=== PATIENT | female | born 2000 | race Caucasian/White ===

== ENCOUNTER 2023-01-07 09:19 | Outpatient (AMB) | payer OTHER, SELFPAY ==
--- NOTE | 2023-01-07 09:20 | A.OFFPC_ITS ---
Vital Signs 01/07/23 09:23 Height 5 ft 5 in Weight 205 lb 4 oz BMI 34.2 BP 104/60 Blood Pressure Location Rt brachial Position Sitting Respiration 12 Pulse 77 Pulse Source Pulse Oximeter Temp 97 F Temp Source Temporal Artery Scan Pulse Oximetry (%) 99 Oxygen Delivery Method Room Air Intake Visit Reasons: DIRECTOR NICU, est. care Date Pitter Required: No Accompanied by: Self / Same As Patient Allergies No Known Allergies Allergy (Verified 01/07/23 09:35) Medication List - Last Reconciled 01/07/23 by Stanislaw Jessica CNP No Known Home Meds Tobacco use date assessed: 01/07/23 Dental Screening Dental Screen Date: 01/07/23 Did you have a dental visit in the last 12 months?: No Did you have a dental problem in the last 6 months where you did not have access to dental care?: No Was dental information given to patient?: Yes HPI HPI Comments History of Present Illness Details 22-year-old female presents to [facility]. She states she was last evaluated by her former PCP/ict sales representative 1 year ago. She notes she has not had blood work done in several years She reports anxiety and depression. She was on medications until 2 years ago when she stopped because I did not not want to take medicine. She was never followed by a therapist.. She denies worsening anxiety and depression symptoms. She declined medication regimen at this time and requests assistance to connect to a therapist. She notes that her last pap smear test was 2 months ago: normal. She requests a referral to gynecology. She is sexually active, in a monogamous relationship, and practices safe sex. Denies significant FH Denies smoking cigarette Reports occasional alcohol consumption [facility] Medical History Anxiety Asthma Depression Surgical History [place] teeth extracted Family History Maternal Grandmother Ovarian cancer Paternal Grandmother Cardiovascular disease Maternal Grandfather High blood pressure Diabetes Social History Housing: House Patient Tobacco Use Status: Never used Tobacco e-Cigarette/Vaping Use: Never Used service: No Current occupational status: employed Current occupation: Teacher at [employer] Cognitive needs: No Hearing needs: No Vision needs: No Questionnaire PHQ-9 Over the last 2 weeks, how often have you been bothered by any of the following problems? 1. Little interest or pleasure in doing things: not at all 2. Feeling down, depressed, or hopeless: several days 3. Trouble falling or staying asleep, or sleeping too much: several days 4. Feeling tired or having little energy: several days 5. Poor appetite or overeating: more than half the days 6. Feeling bad about yourself - or that you are a failure or have let yourself or your family down: several days 7. Trouble concentrating on things, such as reading the newspaper or watching television: not at all 8. Moving or speaking so slowly that other people could have noticed. Or the opposite - being so fidgety or restless that you have been moving around a lot more than usual: not at all 9. Thoughts that you would be better off or of hurting yourself in some way: several days Total score: 7 Depression Screening Interpretation: Positive Depression Screening Follow-up: Existing condition and Community Mental Health Worker F/U Source: Developed by Drs. Kumar Flores, Chantal Banks, Nicanor Grubbs and colleagues, with an educational abhijit from [employer]. Thrive Questionnaire Date Thrive assessed: 01/07/23 I am a: Patient What is your living situation today?: I have a steady place to live Within the past 12 months, did the food you bought not last and you didn't have the money to get more?: Never true Within the past 12 months, did you worry whether your food would run out before you got money to buy more?: Never true Do you have trouble paying for medicines?: No Do you have trouble getting transportation to medical appointments?: No Do you have trouble paying your heating and electricity bill?: No Do you have trouble taking care of your child, family member or friend?: No Do you have trouble with day-to-day activities such as bathing, preparing meals, shopping, managing finances, etc.?: No Are you currently unemployed and looking for a job?: No Are you interested in more education?: No Please select the resources that you would like help with: None Currently or been in a relationship where the following occur: no concerns reported AUDIT C Alcohol Use Questionnaire (AUDIT-C) 1. How often do you have a drink containing alcohol?: Monthly or less 2. How many drinks containing alcohol do you have on a typical day when you are drinking?: 1 or 2 3. How often do you have six or more drinks on one occasion?: Never Total Score: 1 JASWINDER-7 AMB Questionnaire JASWINDER-7 Date JASWINDER - 7 assessed: 01/07/23 Feeling nervous, anxious, or on edge: 3 = Nearly every day Not being able to stop or control worryin = More than half the days Worrying too much about different things: 2 = More than half the days Trouble relaxin = Several days Being so restless that it is hard to sit still: 1 = Several days Becoming easily annoyed or irritable: 1 = Several days Feeling afraid as if something awful might happen: 2 = More than half the days Total JASWINDER-7 score (0-4 normal; 5-9 mild; 10-14 moderate; 15-21 severe): 12 Source: Developed by Drs. Kumar Flores, Chantal Banks, Nicanor Grubbs and colleagues, with an educational abhijit from [employer]. ACT Questionnaire In the past 4 weeks, how much of the time did your asthma keep you from getting as much done at work, school or at home?: None of the time During the past 4 weeks, how often have you had shortness of breath?: Not at all During the past 4 weeks, how often did your asthma symptoms wake you up at night or earlier than usual in the morning?: Not at all During the past 4 weeks, how often have you had to use your rescue inhaler or nebulizer medication?: Not at all How would you rate your asthma control during the past 4 weeks?: Completely controlled Score: 25 Review of Systems Const Details: Denies chills, Denies fatigue, Denies fever(s), Denies headache(s) and Denies weakness HEENT Denies change in vision, Denies dizziness, Denies headache(s), Denies hearing loss, Denies nasal congestion, Denies sinus pain, Denies sinus pressure and Denies sore throat Card Denies chest pain, Denies lightheadedness, Denies dyspnea and Denies other (palpitations) Resp Denies cough, Denies dyspnea and Denies wheezing GI Denies abdominal pain, Denies melena, Denies hematochezia, Denies change in bowel habits, Denies dyspepsia and Denies nausea Denies hematuria and Denies dysuria Musc Denies abnormal gait, Denies myalgias, Denies arthralgias, Denies numbness and Denies tingling Skin/Breast Denies rash, Denies unusual bruising and Denies wounds Neuro Denies abnormal gait, Denies dizziness, Denies headache(s), Denies memory loss, Denies numbness, Denies Sensory deficit (Neuro), Denies tingling and Denies weakness Psych Reports anxiety, Reports depression and Denies memory loss Endo Denies cold intolerance, Denies fatigue, Denies heat intolerance, Denies polydipsia and Denies polyuria Jarret/Lymph Denies easy bleeding and Denies easy bruising Aller/Immun Denies wheezing Physical exam (Primary Care) Vital Signs: Last Vital Signs Temp 97 F 01/07/23 09:23 Pulse 77 01/07/23 09:23 Resp 12 01/07/23 09:23 BP 104/60 01/07/23 09:23 Pulse Ox 99 01/07/23 09:23 Oxygen Delivery Method Room Air 01/07/23 09:23 BMI result Body Mass Index 34.2 Tobacco/Smoking Status: Tobacco use Status Tobacco use date assessed 01/07/23 01/07/23 09:32 Patient Tobacco Use Status Never used Tobacco 01/07/23 09:32 e-Cigarette/Vaping Use Never Used 01/07/23 09:32 PHQ-9: PHQ-9 Score PHQ-9: Total score 7 01/07/23 09:49 Depression Screening Interpretation: Positive Depression Screening Follow-up: Existing condition and Community Mental Health Worker F/U Thrive Assessment: Date of Thrive Assessment Date Thrive assessed 01/07/23 01/07/23 09:32 Currently or been in a relationship where the following occur: no concerns reported Const Other: General: no acute distress, well developed, alert and awake Nutritional Appearance: well nourished Orientation/consciousness: patient oriented x3 HENMT Head: Yes normocephalic and Yes atraumatic Ears: hearing grossly normal bilaterally and TM's normal bilaterally General nose exam: Normal external nose present and Normal nares present Mouth: Normal oral and palatal mucosa present and moist mucous membranes Teeth and gingiva: dentition normal Throat: Yes oropharynx normal Eyes Pupils: Equal, round and reactive pupils present and Pupil accommodation reflex normal EOM: EOMs intact bilaterally Neck Neck: Yes normal visual inspection, Yes no lymphadenopathy and Yes trachea midline Thyroid: Thyroid normal Carotids: no bruits Lymphatic: no lymphadenopathy noted Chest Chest palpation & inspection: normal inspection of the chest Resp Effort & Inspection: normal respiratory effort Auscultation: clear to auscultation bilaterally Cardio Rate: regular rate Rhythm: regular rhythm Heart sounds: S1 normal heart sound present, S2 normal heart sound present, no gallops, no murmurs and no rubs Bruits: no abdominal aortic bruits and no carotid bruits GI Palpation (GI): No Abdominal aortic bruit present, Soft to palpation, nontender, No hepatosplenomegaly present and No Rebound tenderness present Auscultation: normal bowel sounds General: Yes no CVA tenderness Back/Spine/Pelvis Back: no CVA tenderness Cervical Spine: cervical ROM normal and No Cervical spine tenderness Thoracic/Lumbar Spine: thoraco-lumbar ROM normal, No pain with thoraco-lumbar ROM, No thoracic spinal tenderness and No lumbar spinal tenderness Skin General: warm and dry. Normal skin color. Normal skin turgor Lesions: no lesions Rashes: no rashes Trauma: no lacerations or abrasions Wounds: no wounds Nails: normal Neuro General: patient oriented x3, gait normal and CN's II-XI intact bilaterally Cranial nerves: Yes Equal, round and reactive pupils present Cognition (Neuro): normal cognition Gait exam (Neuro): Normal gait present Motor exam (neuro): 5/5 motor strength present throughout Sensory Exam: No Sensory deficit (Neuro) Deep tendon reflexes (DTR's): Right patellar reflex intensity grade: 2+ and Left patellar reflex intensity grade: 2+ Extrem General: Yes normal to inspection, No edema and No calf tenderness Psych Appearance: grossly normal Affect: normal affect Attitude: cooperative Thought process: Normal thought process present Assessment and Plan Assessment & Plan (1) Anxiety and depression: Code(s): F41.9 - Anxiety disorder, unspecified; F32.A - Depression, unspecified Plan: She reports anxiety and depression. She was on medications until 2 years ago when she stopped because I did not not want to take medicine. She was never followed by a therapist.. She denies worsening anxiety and depression symptoms. She declined medication regimen at this time and requests assistance to connect to a therapist. She met with the community navigator who provided resources to help connect to a therapist Routine exercise encouraged Follow-up in 1 month return sooner with worsening or new symptoms Verbalized understanding and agreed with treatment plan. (2) Normal physical examination, routine: Code(s): Z00.00 - Encounter for general adult medical examination without abnormal findings Plan: No significant physical restrictions or limitations noted (3) Laboratory tests ordered as part of a complete physical exam (CPE): Code(s): Z00.00 - Encounter for general adult medical examination without abnormal findings Plan: Fasting labs ordered as part of a complete physical exam. Advised to fast for at least 10 hours before getting labs drawn. May drink water Verbalized understanding and agreed with treatment plan. (4) Pap smear for cervical cancer screening: Code(s): Z12.4 - Encounter for screening for malignant neoplasm of cervix Plan: She notes that her last pap smear test was 2 months ago: normal. She requests a referral to gynecology. Gynecology referral made. Orders: Orders Comprehensive [place]. Panel Fast Today Z00.00 - Encounter for general adult medical examination without abnormal findings Lipid Panel Today Z00.00 - Encounter for general adult medical examination without abnormal findings TSH reflex Free T4 Today Z00.00 - Encounter for general adult medical examination without abnormal findings Complete Blood Count Auto Diff Today Z00.00 - Encounter for general adult medical examination without abnormal findings UA CC w/rflx Micro + Cult Today Z00.00 - Encounter for general adult medical examination without abnormal findings Referrals [facility] Referral Z12.4 - Encounter for screening for malignant neoplasm of cervix Coding Level of Care Code New Pt Prev Care 18-39yr([id number] Diagnoses Anxiety and depression F41.9; F32.A Normal physical examination, routine Z00.00 Laboratory tests ordered as part of a complete physical exam (CPE) Z00.00 Pap smear for cervical cancer screening Z12.4
[2023-01-07 09:23] VITALS: BP 104/60; PULSE 77; RESP 12; TEMP 36.1; O2SAT 99; BMI 34.2
== END 2023-01-07 10:15 | disposition home or self-care (01) ==
PROVIDERS: PCP Hospitalist; Visit Provider Nurse Practitioner Family
DX: F41.9 Anxiety disorder, unspecified (principal); F32.A Depression, unspecified; Z00.00 Encounter for general adult medical examination without abnormal findings; Z12.4 Encounter for screening for malignant neoplasm of cervix
CPT/HCPCS: 99385

== ENCOUNTER 2023-01-07 09:58 | Outpatient (REF) | payer OTHER, MEDICAID, SELFPAY ==
[2023-01-07 11:12] LABS: MANUAL DIFF FLAG NO
[2023-01-07 11:43] LABS: Appearance Urine Clear; Color Urine Yellow; Glucose Urine UA Negative (Negative); Leukocyte Esterase Urine Negative (Negative); Nitrite Urine Negative (Negative); PH 6.5 (5.0-9.0); Specific Gravity - Urine 1.015 (1.005-1.025); Urine Blood Negative (Negative); Urine Ketones Negative (Negative); Urine Protein Negative (Neg-Trace)
[2023-01-07 12:04] LABS: Basophils Absolute Auto 0.1 X10*3/uL (0.0-0.2); Basophils Percent Auto 1.1 % (0-2); Eosinophils Absolute Auto 0.1 X10*3/uL (0.0-0.4); Eosinophils Percent Auto 1.1 % (0-4); Hematocrit 40.8 % (37.0-47.0); Hemoglobin 13.7 g/dl (12.0-16.0); Imm Gran Abs Auto 0.02 X10*3/uL (0.00-0.03); Imm Gran Pct Auto 0.3 % (0.0-0.4); Lymphocytes Absolute Auto 1.8 X10*3/uL (1.2-4.9); Lymphocytes Percent Auto 27.6 % (20-40); Mean Corpuscular HGB Conc 33.6 g/dl (31.0-35.0); Mean Corpuscular Hemoglobin 31.4 pg (27.0-33.0); Mean Corpuscular Volume 93.6 fL (80.0-98.0); Mean Platelet Volume 10.9 fL (9.4-12.3); Monocytes Absolute Auto 0.4 X10*3/uL (0.1-1.2); Monocytes Percent Auto 5.4 % (2-11); Neutrophils Absolute Auto 4.2 x10*3/uL (2.0-8.3); Neutrophils Percent Auto 64.5 % (45-73); Platelet Count 324 X10*3/uL (160-400); Red Blood Count 4.36 X10*6/uL (4.20-5.50); Red Cell Distribution Width 11.6 % (11.0-16.0); White Blood Count 6.5 X10*3/uL (4.8-10.8)
[2023-01-07 12:53] LABS: Alanine Aminotransferase 17 U/L (0-31); Albumin Level 4.3 g/dL (3.5-5.0); Alkaline Phosphatase 56 U/L (39-117); Anion Gap 14 (12-20); Aspartate Amino Transferase 22 U/L (5-31); Bilirubin Total 0.2 mg/dL (0.0-1.0); Blood Urea Nitrogen 11 mg/dL (9-16); Calcium 9.7 mg/dL (8.4-10.2); Carbon Dioxide 23 mmol/L (22-29); Chloride 109 mmol/L (96-108); Cholesterol 209 mg/dL; Estimated Glomerular Filt Rate > 60; Glucose Fasting 84 mg/dL (60-99); HDL Cholesterol 62 mg/dL; LDL Cholesterol Calculated 139 mg/dl; Potassium 3.9 mmol/L (3.3-5.1); Sodium 142 mmol/L (135-145); Total Protein 7.3 g/dL (6.5-8.0); Triglycerides 42 mg/dL
[2023-01-07 13:09] LABS: TSH reflex Free T4 2.02 uIU/mL (0.32-4.0)
== END 2023-01-07 09:59 | disposition home or self-care (01) ==
LOC: HO.WFDLDS 09:58
PROVIDERS: Visit Provider Nurse Practitioner Family
DX: Z00.00 Encounter for general adult medical examination without abnormal findings (principal)
CPT/HCPCS: 36415; 80053; 80061; 81003; 84443; 85025

== ENCOUNTER 2023-02-04 09:04 | Outpatient (AMB) | payer OTHER, SELFPAY ==
[2023-02-04 09:20] VITALS: BP 112/65; PULSE 58; RESP 16; TEMP 37.1; O2SAT 97; BMI 33.8
--- NOTE | 2023-02-04 09:20 | A.OFFPC_ITS ---
Vital Signs 02/04/23 09:20 Height 5 ft 5 in Weight 203 lb 2 oz BMI 33.8 BP 112/65 Blood Pressure Location Lt brachial Position Sitting Respiration 16 Pulse 58 Pulse Source Pulse Oximeter Temp 98.8 F Temp Source Oral Pulse Oximetry (%) 97 Oxygen Delivery Method Room Air Intake Visit Reasons: 1 mos labs review, anxiety/depression Intake Note: Patient is here for lab review, and to follow up on anxiety and depression. Allergies No Known Allergies Allergy (Verified 02/04/23 09:42) Medication List - Last Reconciled 02/04/23 by Stanislaw Jessica CNP No Known Home Meds Tobacco use date assessed: 02/04/23 Dental Screening Dental Screen Date: 02/04/23 Did you have a dental visit in the last 12 months?: No Did you have a dental problem in the last 6 months where you did not have access to dental care?: No Was dental information given to patient?: Patient declined HPI HPI Comments History of Present Illness Details 22-year-old female presents for anxiety and depression follow-up. She established care last month. She declined medication regimen for anxiety and depression. She met with the community navigator who provided resources to help her connect to a therapist. She reports controlled anxiety and depression symptoms. She reports history of ADHD. Review of her pediatrics health record revealed history of ADHD; she was on amphetamine-dextroamphetamine 15 mg daily until a year ago. She requests as needed anxiety medication. She notes she does not like to take scheduled medications. [facility] Medical History Anxiety Asthma Depression Surgical History [place] teeth extracted Family History Maternal Grandmother Ovarian cancer Paternal Grandmother Cardiovascular disease Maternal Grandfather High blood pressure Diabetes Social History Housing: House Patient Tobacco Use Status: Never used Tobacco e-Cigarette/Vaping Use: Never Used service: No Current occupational status: employed Current occupation: Teacher at [employer] Cognitive needs: No Hearing needs: No Vision needs: No Questionnaire PHQ-9 Over the last 2 weeks, how often have you been bothered by any of the following problems? 1. Little interest or pleasure in doing things: several days 2. Feeling down, depressed, or hopeless: several days 3. Trouble falling or staying asleep, or sleeping too much: several days 4. Feeling tired or having little energy: nearly every day 5. Poor appetite or overeating: several days 6. Feeling bad about yourself - or that you are a failure or have let yourself or your family down: not at all 7. Trouble concentrating on things, such as reading the newspaper or watching television: several days 8. Moving or speaking so slowly that other people could have noticed. Or the opposite - being so fidgety or restless that you have been moving around a lot more than usual: not at all 9. Thoughts that you would be better off or of hurting yourself in some way: not at all Total score: 8 Depression Screening Interpretation: Positive Source: Developed by Drs. Kumar Flores, Chantal Banks, Nicanor Grubbs and colleagues, with an educational abhijit from [employer]. Thrive Questionnaire Date Thrive assessed: 01/07/23 JASWINDER-7 AMB Questionnaire JASWINDER-7 Date JASWINDER - 7 assessed: 01/07/23 Feeling nervous, anxious, or on edge: 1 = Several days Not being able to stop or control worryin = Several days Worrying too much about different things: 1 = Several days Trouble relaxin = Not at all Being so restless that it is hard to sit still: 0 = Not at all Becoming easily annoyed or irritable: 1 = Several days Feeling afraid as if something awful might happen: 2 = More than half the days Total JASWINDER-7 score (0-4 normal; 5-9 mild; 10-14 moderate; 15-21 severe): 6 Source: Developed by Drs. Kumar Flores, Chantal Banks, Nicanor Grubbs and colleagues, with an educational abhijit from [employer]. Review of Systems Const Details: Const Denies chills, Denies fatigue, Denies fever(s), Denies headache(s) and Denies weakness ENT Denies dizziness and Denies headache(s) Card Denies chest pain, Denies lightheadedness, Denies dyspnea and Denies other (Palpitations) Resp Denies cough, Denies dyspnea, Denies wheezing and Denies other ( shortness of breath) GI Denies abdominal pain, Denies melena, Denies hematochezia, Denies change in bowel habits, Denies dyspepsia and Denies nausea Denies hematuria and Denies dysuria Musc Denies abnormal gait, Denies myalgias, Denies arthralgias, Denies numbness and Denies tingling Skin/Breast Denies rash, Denies unusual bruising and Denies wounds Neuro Denies abnormal gait, Denies dizziness, Denies headache(s), Denies memory loss, Denies numbness, Denies Sensory deficit (Neuro), Denies tingling and Denies weakness Psych Denies anxiety, Denies depression, Denies memory loss Endo Denies cold intolerance, Denies fatigue, Denies heat intolerance, Denies polydipsia and Denies polyuria Aller/Immun Denies wheezing Physical exam (Primary Care) Vital Signs: Last Vital Signs Temp 98.8 F 02/04/23 09:20 Pulse 58 02/04/23 09:20 Resp 16 02/04/23 09:20 BP 112/65 02/04/23 09:20 Pulse Ox 97 02/04/23 09:20 Oxygen Delivery Method Room Air 02/04/23 09:20 BMI result Body Mass Index 33.8 Tobacco/Smoking Status: Tobacco use Status Tobacco use date assessed 02/04/23 02/04/23 09:32 Patient Tobacco Use Status Never used Tobacco 02/04/23 09:21 e-Cigarette/Vaping Use Never Used 02/04/23 09:21 PHQ-9: PHQ-9 Score PHQ-9: Total score 8 02/04/23 09:32 Depression Screening Interpretation: Positive Thrive Assessment: Date of Thrive Assessment Date Thrive assessed 01/07/23 02/04/23 09:21 Const Other: General: no acute distress and well developed Nutritional Appearance: well nourished Orientation/consciousness: patient oriented x3 HENMT Head: Yes normocephalic and Yes atraumatic Eyes General: appearance normal, both eyes and all related structures Pupils: Equal, round and reactive pupils present EOM: EOMs intact bilaterally Resp Effort & Inspection: normal respiratory effort Auscultation: clear to auscultation bilaterally Cardio Rate: regular rate Rhythm: regular rhythm Heart sounds: S1 normal heart sound present, S2 normal heart sound present, no gallops, no murmurs and no rubs GI Palpation (GI): No Abdominal aortic bruit present, Soft to palpation, nontender, No hepatosplenomegaly present and No Rebound tenderness present Auscultation: normal bowel sounds General: Yes no CVA tenderness Back/Spine/Pelvis Back: no CVA tenderness Cervical Spine: cervical ROM normal and No Cervical spine tenderness Thoracic/Lumbar Spine: thoraco-lumbar ROM normal, No pain with thoraco-lumbar ROM, No thoracic spinal tenderness and No lumbar spinal tenderness Extrem General: Yes normal to inspection, No edema and No calf tenderness Skin General: warm and dry. Normal skin color. Normal skin turgor Lesions: no lesions Rashes: no rashes Trauma: no lacerations or abrasions Wounds: no wounds Nails: normal Neuro General: patient oriented x3, gait normal and no focal neuro deficit Cranial nerves: Yes Equal, round and reactive pupils present Cognition (Neuro): normal cognition Gait exam (Neuro): Normal gait present Sensory Exam: No Sensory deficit (Neuro) Psych Appearance: grossly normal Affect: normal affect Attitude: cooperative Thought process: Normal thought process present Assessment and Plan Assessment & Plan (1) Anxiety and depression: Code(s): F41.9 - Anxiety disorder, unspecified; F32.A - Depression, unspecified Plan: PHQ-9 and JASWINDER-7 scores revealed mild anxiety and depression Hydroxyzine ordered. Take as prescribed Routine exercise encouraged Message sent to the community navigator informing him to follow-up with therapist Follow-up in 3 months or return sooner with worsening or new symptoms Verbalized understanding and agreed with treatment plan (2) ADHD: Code(s): F90.9 - Attention-deficit hyperactivity disorder, unspecified type Plan: As above (3) Hypercholesterolemia: Code(s): E78.00 - Pure hypercholesterolemia, unspecified Plan: Recent lab results reviewed with the patient Unremarkable lab results except for slightly elevated total cholesterol and LDL Advised to limit foods high in saturated fat and avoid foods high trans fat Routine exercise encouraged Verbalized understanding and agreed with treatment plan. Medications: New hydroxyzine HCl 25 mg PO BID 30 days PRN 90 tabs 1RF anxiety Coding Level of Care Code Est Pt Level 3 (73021) Diagnoses Anxiety and depression F41.9; F32.A ADHD F90.9 Hypercholesterolemia E78.00
== END 2023-02-04 10:07 | disposition home or self-care (01) ==
PROVIDERS: PCP Hospitalist; Visit Provider Nurse Practitioner Family
DX: F41.9 Anxiety disorder, unspecified (principal); F32.A Depression, unspecified; F90.9 Attention-deficit hyperactivity disorder, unspecified type; E78.00 Pure hypercholesterolemia, unspecified
CPT/HCPCS: 99213

== ENCOUNTER 2023-04-02 09:49 | Outpatient (AMB) | payer OTHER, MEDICAID, SELFPAY ==
[2023-04-02 09:55] VITALS: BP 124/78; PULSE 64; RESP 16; TEMP 36.9; O2SAT 98; BMI 33.2
--- NOTE | 2023-04-02 09:55 | A.OFFPC_ITS ---
Vital Signs 04/02/23 09:55 Height 5 ft 5 in Weight 199 lb 6 oz BMI 33.2 BP 124/78 Blood Pressure Location Lt brachial Position Sitting Respiration 16 Pulse 64 Pulse Source Pulse Oximeter Temp 98.4 F Temp Source Oral Pulse Oximetry (%) 98 Oxygen Delivery Method Room Air Intake Visit Reasons: Cough since 03/24 Intake Note: Patient is here with a cough since last Saturday. She had negative at home Covid tests. She has a runny nose, and headaches from coughing, sore throat, and chest congestion. Allergies No Known Allergies Allergy (Verified 04/02/23 10:04) Medication List - Last Reconciled 04/02/23 by Stanislaw Jessica CNP hydroxyzine HCl 25 mg PO BID PRN 30 days Tobacco use date assessed: 04/02/23 Dental Screening Dental Screen Date: 04/02/23 Did you have a dental visit in the last 12 months?: Yes Did you have a dental problem in the last 6 months where you did not have access to dental care?: No Was dental information given to patient?: Patient declined HPI HPI Comments History of Present Illness Details 22-year-old female presents with complai nts of ongoing, intermittent productive cough with green phlegm for the past 7 days. She reports associated runny nose, frontal headache, sore throat, and chest congestion which started 10 days ago. She notes severe symptoms at night. 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 Her coworker is also sick. She has been taking Tylenol and DayQuil with some improvement. She denies fever, chills, body aches, fatigue, or weakness. She states that she has a negative rapid home COVID test. 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 Kumar Flores, Chantal Banks, Nicanor Grubbs and colleagues, with an educational abhijit from [employer]. Review of Systems Const Details: Const Denies chills, Denies fatigue, Denies fever(s), Reports headache(s) and Denies weakness ENT Reports as per HPI Card Denies chest pain, Denies lightheadedness, Denies dyspnea and Denies other (Palpitations) Resp Reports cough, Denies dyspnea, Denies wheezing and Denies other ( shortness of breath) GI Denies abdominal pain, Denies melena, Denies hematochezia, Denies change in bowel habits, Denies dyspepsia and Denies nausea Denies hematuria and Denies dysuria Musc Denies abnormal gait, Denies myalgias, Denies arthralgias, Denies numbness and Denies tingling Skin/Breast Denies rash, Denies unusual bruising and Denies wounds Neuro Denies abnormal gait, Denies dizziness, Denies headache(s), Denies memory loss, Denies numbness, Denies Sensory deficit (Neuro), Denies tingling and Denies weakness Psych Denies anxiety, Denies depression, Denies memory loss Endo Denies cold intolerance, Denies fatigue, Denies heat intolerance, Denies polydipsia and Denies polyuria Aller/Immun Denies wheezing Physical exam (Primary Care) Vital Signs: Last Vital Signs Temp 98.4 F 04/02/23 09:55 Pulse 64 04/02/23 09:55 Resp 16 04/02/23 09:55 BP 124/78 04/02/23 09:55 Pulse Ox 98 04/02/23 09:55 Oxygen Delivery Method Room Air 04/02/23 09:55 BMI result Body Mass Index 33.2 Tobacco/Smoking Status: Tobacco use Status Tobacco use date assessed 04/02/23 04/02/23 09:58 Patient Tobacco Use Status Never used Tobacco 10/24/23 09:58 e-Cigarette/Vaping Use Never Used 04/02/23 09:58 Thrive Assessment: Date of Thrive Assessment Date Thrive assessed 01/07/23 04/02/23 09:58 Const Other: General: no acute distress and well developed Nutritional Appearance: well nourished Orientation/consciousness: patient oriented x3 HENMT Head is normocephalic Bilateral ear canal and TM are normal Nasal turbinates and oropharynx are pink and moist Sinuses are nontender with palpation No auricular or cervical lymphadenopathy Eyes General: appearance normal, both eyes and all related structures Pupils: Equal, round and reactive pupils present EOM: EOMs intact bilaterally Resp Effort & Inspection: normal respiratory effort Auscultation: clear to auscultation bilaterally Cardio Rate: regular rate Rhythm: regular rhythm Heart sounds: S1 normal heart sound present, S2 normal heart sound present, no gallops, no murmurs and no rubs GI Palpation (GI): No Abdominal aortic bruit present, Soft to palpation, nontender, No hepatosplenomegaly present and No Rebound tenderness present Auscultation: normal bowel sounds General: Yes no CVA tenderness Back/Spine/Pelvis Back: no CVA tenderness Cervical Spine: cervical ROM normal and No Cervical spine tenderness Thoracic/Lumbar Spine: thoraco-lumbar ROM normal, No pain with thoraco-lumbar ROM, No thoracic spinal tenderness and No lumbar spinal tenderness Extrem General: Yes normal to inspection, No edema and No calf tenderness Skin General: warm and dry. Normal skin color. Normal skin turgor Lesions: no lesions Rashes: no rashes Trauma: no lacerations or abrasions Wounds: no wounds Nails: normal Neuro General: patient oriented x3, gait normal and no focal neuro deficit Cranial nerves: Yes Equal, round and reactive pupils present Cognition (Neuro): normal cognition Gait exam (Neuro): Normal gait present Sensory Exam: No Sensory deficit (Neuro) Psych Appearance: grossly normal Affect: normal affect Attitude: cooperative Thought process: Normal thought process present Assessment and Plan Assessment & Plan (1) Viral upper respiratory illness: Code(s): J06.9 - Acute upper respiratory infection, unspecified Plan: Likely viral illness though possibly allergies. No exam evidence of bacterial infection Viral illness There is no antibiotic medication for viruses.? They must run their course.? Most average 5-7 days but 7-10 days is not uncommon and up to 14 days is still possible.? A cough is often the last symptom to resolve and this can last for weeks in some cases. Rest Hydrate well -? Drink plenty of fluids.? Especially water. Tylenol or ibuprofen for muscle aches, headache, fever/discomfort Zyrtec daily Cannot rule out COVID-19/RSV/Flu infection Nasal swab acquired and will be sent to the lab Return for new or worsening symptoms Verbalized understanding and agreed with treatment plan. (2) Cough: Code(s): R05.9 - Cough, unspecified Qualifiers: Cough type: acute Qualified Code(s): R05.1 - Acute cough Plan: As above Orders: Orders SARS-CoV2/FLU/RSV Today J06.9 - Acute upper respiratory infection, unspecified, R05.9 - Cough, unspecified Coding Level of Care Code Est Pt Level 3 (92032) Diagnoses Viral upper respiratory illness J06.9 Acute cough R05.1 Cough type: acute
== END 2023-04-02 10:24 | disposition home or self-care (01) ==
PROVIDERS: PCP Nurse Practitioner Family; Visit Provider Nurse Practitioner Family
DX: J06.9 Acute upper respiratory infection, unspecified (principal); R05.1 Acute cough
CPT/HCPCS: 99213

== ENCOUNTER 2023-04-02 10:23 | Outpatient (REF) | payer OTHER, MEDICAID, SELFPAY ==
[2023-04-02 15:13] LABS: Influenza A PCR NEGATIVE (Negative); Influenza B PCR NEGATIVE (Negative); Resp Syncy Virus RNA Qual PCR NEGATIVE (Negative); SARS COV2 PCR INHOUSE NEGATIVE (Negative)
== END 2023-04-02 10:24 | disposition home or self-care (01) ==
LOC: HO.LAB 10:23
PROVIDERS: Visit Provider Nurse Practitioner Family
DX: Z11.52 Encounter for screening for COVID-19 (principal); J06.9 Acute upper respiratory infection, unspecified; R05.9 Cough, unspecified
CPT/HCPCS: 0241U

== ENCOUNTER 2023-04-23 09:37 | Outpatient (AMB) | payer OTHER, MEDICAID, SELFPAY ==
--- NOTE | 2023-04-23 09:41 | MHC.OFFVIS ---
Intake Vital Signs 04/23/23 09:42 Height 5 ft 5.5 in Weight 204 lb BMI 33.4 Intake Visit Reasons: Consult nexplanon removal Intake Note: Nexplanon due for removal card state Jun 2021. Sap Basis Consultant Required: No Allergies No Known Allergies Allergy (Verified 04/23/23 09:44) Medication List - Last Reconciled 04/23/23 by Jade Espinosa CNM etonogestrel (Nexplanon) subdermal hydroxyzine HCl 25 mg PO BID PRN 30 days Is last menstrual period known: Yes Last menstrual period: 04/09/23 Post menopausal: No HPI Consult nexplanon removal HPI Details Patient is here to discuss getting her Nexplanon removed she was told it was due for removal in June of 2021 but every time she called to inquire about it where it was put in they told her that she could leave it in longer and it would still work for her she had a period of time where she did not have as regular periods but she has been getting them fairly frequently and she has been keeping track for at least the last year very regularly and they are at least monthly with at least 2 months when she got 2 periods a month of fairly long periods of bleeding. She does think she has gained a lot of weight with the Nexplanon so she is unsure about what she wants to do for control she is pretty clear that she does not want to have a baby right now she is in the stable monogamous relationship and things are good but she has not ready to have a baby at this time of her life. Her mother had PCOS and the patient herself has noticed increased chest hair and so she is concerned about that. Her mother and other friends had been told they could not have a baby because of the PCOS so she was concerned about that. 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 [facility] Medical History Asthma Depression Anxiety Surgical History [place] teeth extracted Family History Maternal Grandmother Ovarian cancer Paternal Grandmother Cardiovascular disease Maternal Grandfather High blood pressure Diabetes Social History (Updated 04/23/23 @ 09:47 by LEROY Castillo) Housing: House Alcohol intake: current Alcohol intake frequency: a few times a month Patient Tobacco Use Status: Never used Tobacco e-Cigarette/Vaping Use: Never Used Use of substances other than those prescribed or required for medical reasons: Yes Substance Use Type: Marijuana service: No Current occupational status: employed 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 Assessment & Plan Assessment & Plan (1) control counseling: Code(s): Z30.09 - Encounter for other general counseling and advice on contraception (2) Nexplanon in place: Code(s): Z97.5 - Presence of (intrauterine) contraceptive device Plan -I reviewed with the patient, all of the currently common used methods of control that are available. We reviewed how they work in the body, how they are taken, common side effects, uncommon side effects, precautions, and contraindications. -Discussed also factors that influence their effectiveness and use, and womens satisfaction with the method. -Discussed how each are used, and drawbacks of each method as well. -Methods covered included: condoms, control pills, control patches, control rings, Depo-Provera, Nexplanon, Mirena and ParaGard IUDs. If interested, we also covered methods such as vasectomies, abstinence, fertility awareness and Plan B. discussed their role as well. ---Discussed PCOS in general and specifically about the interplay of the abnormal hormonal milieu related to being overweight, with the elevations of many hormone levels, including testosterone and estrogen, as well as others that contribute to cycles that are anovulatory and therefore prolonged, and when periods do come they come very heavy, and can contribute to lots of cramping, with passage of clots and anemia. Discussed the common symptoms related to the elvated hormonal levels, including increased facial hair, male pattern hair thinning, acne, and increased central abdominal girth. Discussed the interplay with difficulty getting when desired, but still possible, and therefore the need to contracept as appropriate and when needed. Discussed the role of weight loss as the primary, most important, and most likely to succeed, intervention, in achieving healthier status as regards PCOS, and ovulatory regular cycles. Additionally the very important relationship to elevated insulin levels, and blood sugars, and high risk of pre diabetes, progressing to diabetes as well as other metabolic syndromes related to this was discussed. This was a lengthy visit discussing all of the options for her to consider given her concerns and what she is open to. She is going to go home and think about it and when she decides she will will come in and sign what ever form is appropriate for ordering of the particular system her top to choices as she was leaving the office were a a ParaGard IUD which could be inserted with her next menses after her arrival of the ParaGard or be replacement of the Nexplanon with a new 1. In the meantime I urged her to use condoms and be very careful about especially if she has any symptoms of ovulation which she has noted in the past. Other options that were discussed and then she moved on from them were the norethindrone only OCP, Coding Level of Care Code New Pt Level 4 (64859) Diagnoses control counseling Z30.[address] Z97.5 Time Spent (min) 45 Comment 100% face to face counseling/decision making
[2023-04-23 09:42] VITALS: BMI 33.4
== END 2023-04-23 10:41 | disposition home or self-care (01) ==
LOC: HO.HWS 09:37
PROVIDERS: PCP Nurse Practitioner Family; Visit Provider Advanced Practice Midwife
DX: Z30.09 Encounter for other general counseling and advice on contraception (principal); Z97.5 Presence of (intrauterine) contraceptive device
CPT/HCPCS: 99204

== ENCOUNTER → 2023-04-23 09:37 | Outpatient (BNVA) | payer OTHER, MEDICAID, SELFPAY | PROVIDERS: PCP Nurse Practitioner Family; Visit Provider Advanced Practice Midwife ==

== ENCOUNTER 2023-08-27 13:26 | Outpatient (AMB) | payer OTHER, SELFPAY ==
--- NOTE | 2023-08-27 13:31 | MHC.OFFVIS ---
Intake Vital Signs 08/27/23 13:32 Height 5 ft 5 in Weight 205 lb BMI 34.1 BP 132/74 Blood Pressure Location Rt brachial Position Sitting Intake Visit Reasons: Nexplanon Removal/40 min Allergies No Known Allergies Allergy (Verified 08/27/23 13:32) Medication List - Last Reconciled 08/27/23 by Jade Espinosa CNM etonogestrel (Nexplanon) subdermal Is last menstrual period known: Yes (08/14/23) Last menstrual period: 08/14/23 HPI Nexplanon Removal/40 min HPI Details Patient is here with her boyfriend Harsh to have her Nexplanon removed she brought her boyfriend because ?I am a baby?. She has had the Nexplanon in for 5 years she is very glad she did not get in that time she has made a plan that she will and has been using condoms since I recommended that to her. Also if she gets it would not be the end of the world though it has not quite in their plans as they have bought a house and are not quite in the space they want to be to have a baby at this time but they have been together for many years and are quite comfortable and feel in a good place emotionally. 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 For now she wants to remove it and let her periods get back to normal she potentially may have had a history of PCOS and this was discussed at the last visit she has gained weight over the years and discussed the connection between regular menses and being overweight as well. 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 The insertion site was located: 8-10cm from the medial epicondyle notch of the humerus, posterior to the sulcus, between the triceps and biceps muscle. The area of the previous implant was identified and the distal tip located. This area was cleansed with an alcohol prep and 3 ml of 1% Lidocaine on a 25 gauge needle and syringe was utilized for adequate anesthesia to the insertion site. After ascertaining adequate anesthesia, the area was prepped with Betadine solution. The skin over the distal tip was incised with a #11 blade scalpel and the capsule was located and entered freeing the implant from the canal. The implant was removed with a gentle tug using a mosquito clamp and removed intact. Direct pressure was applied to the insertion site for hemostasis, minimal bleeding was observed. Steri strips, Tegaderm covering, gauze pads, and Darryl wrap dressing were secured with paper tape. The implant was palpable underneath the skin by myself and the patient. The patient tolerated the procedure well and left the office in good condition. 60446 - Removal Assessment & Plan Assessment & Plan (1) Nexplanon in place: Code(s): Z97.5 - Presence of (intrauterine) contraceptive device (2) control counseling: Code(s): Z30.09 - Encounter for other general counseling and advice on contraception (3) Encounter for Nexplanon removal: Code(s): Z30.46 - Encounter for surveillance of implantable subdermal contraceptive Plan Patient is here with her boyfriend Harsh to have her Nexplanon removed she brought her boyfriend because ?I am a baby?. She has had the Nexplanon in for 5 years she is very glad she did not get in that time she has made a plan that she will and has been using condoms since I recommended that to her. Also if she gets it would not be the end of the world though it has not quite in their plans as they have bought a house and are not quite in the space they want to be to have a baby at this time but they have been together for many years and are quite comfortable and feel in a good place emotionally. 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 For now she wants to remove it and let her periods get back to normal she potentially may have had a history of PCOS and this was discussed at the last visit she has gained weight over the years and discussed the connection between regular menses and being overweight as well. She has a plan to use condoms and also she is going to start keeping track of her periods though they are very irregular at this time. If they become regular than she might be able to also use fertility awareness as part of her regimen however they are not regular now so that would not be useful as a tool. I gave her a prescription for Plan B control in case she has an oops. Discussed keeping a put the pressure dressing on for several hours if she can tolerate it as she does have a tendency to bleed and the longer it stays under pressure the less likely she is to have a problem with bleeding and healing and it will heal much better she needs to keep the Tegaderm sterile dressing on for at least 3 days it has Steri-Strips underneath and they will come off when she removes the Tegaderm. We will see her whenever she needs to be seen and she says she had her Pap smear done last year at her previous practice. She is to call her seek emergency care or urgent care if there were any difficulties.. Orders: Orders AMB Nexplanon/Implanon Insertion - Patient Supply Today Z30.09 - Encounter for other general counseling and advice on contraception, Z30.46 - Encounter for surveillance of implantable subdermal contraceptive, Z97.5 - Presence of (intrauterine) contraceptive device Medications: New levonorgestrel (Plan B One-Step) 1.5 mg PO ONCE 1 tab 4RF Coding Level of Care Code Est Pt Level 3 (19253) Diagnoses Nexplanon in place Z97.5 control counseling Z30. Encounter for Nexplanon removal Z30.46 CPT Codes Details - Contraception: 11444 - Removal ([id number])
[2023-08-27 13:32] VITALS: BP 132/74; BMI 34.1
== END 2023-08-27 15:29 | disposition home or self-care (01) ==
PROVIDERS: PCP Nurse Practitioner Family; Visit Provider Advanced Practice Midwife
DX: Z30.09 Encounter for other general counseling and advice on contraception (principal); Z97.5 Presence of (intrauterine) contraceptive device; Z30.46 Encounter for surveillance of implantable subdermal contraceptive
CPT/HCPCS: 11982; 99213

== ENCOUNTER → 2023-08-27 13:26 | Outpatient (BNVA) | payer OTHER, MEDICAID, SELFPAY | PROVIDERS: PCP Nurse Practitioner Family; Visit Provider Advanced Practice Midwife | DX: Z30.46 Encounter for surveillance of implantable subdermal contraceptive (principal) | CPT/HCPCS: 11982 ==

== ENCOUNTER 2024-01-30 14:02 | Outpatient (AMB) | payer OTHER, SELFPAY ==
--- NOTE | 2024-01-30 14:03 | A.OFFVIS_ITS ---
Intake Visit Reasons: TV PCOS follow up Allergies No Known Allergies Allergy (Verified 01/30/24 14:03) Medication List - Last Reconciled 01/30/24 by Jade Espinosa CNM No Known Home Meds Is last menstrual period known: Yes Last menstrual period: 01/04/24 HPI HPI TV PCOS follow up: Details: This is a tele visit to discuss patient concerns about whether not she has PCOS she had a Nexplanon removed 08/27/2023. Her periods did return and she had a period September 05 to September 10, October 07 to October 09, November 08 to November 11, December 07 to December 10, and January 03 to January 06., she has a history about to go migraines she believes she is overweight. She is trying to be hormone free for now and keep very close track of her periods and is even using ovulation predictor kits to check her LH level so that she can avoid hormonal methods of control she has her primary care provider who has not had in recent fasting labs though fasting labs from December of 2022 were found. She is concerned that maybe she has PCOS because her periods have gotten shorter and she is overweight and also she does have more chest hair when she believes is normal. She is trying to figure out safe days but also is concerned about future fertility just got them diabetes. She also is concerned for future fertility issues. She had felt tightness in arm where the Nexplanon had been couple of weeks after had been concerned that it was not healing might but it is fine now. [facility] Medical History Asthma Depression Anxiety Surgical History [place] teeth extracted Family History Maternal Grandmother Ovarian cancer Paternal Grandmother Cardiovascular disease Maternal Grandfather High blood pressure Diabetes Social History Housing: House Alcohol intake: current Alcohol intake frequency: a few times a month Patient Tobacco Use Status: Never used Tobacco e-Cigarette/Vaping Use: Never Used Substance Use Type: Marijuana service: No Current occupational status: employed Current occupation: Teacher at [employer] Cognitive needs: No Hearing needs: No Vision needs: No Female Reproductive History Menstrual Age of Menarche: 13 Date of last menstrual period: 01/04/24 control method: none Total pregnancies: 0 Date of last pap smear: 06/29/22 (negative) Telehealth Telehealth Telehealth Platform: Telephone Location of provider rendering services: practice address Location of patient: address on file Patient Identification confirmed using: Name, : Yes Telehealth method: voice only Patient verbally consented to treatment: Yes Patient verbally consented to billing insurance company: Yes Patient informed of any privacy concerns related to visit: Yes Minutes spent on Phone/Video with Pt.: 28 (6 cr/ speaking with patient/9 charting=43) Assessment & Plan Assessment & Plan (1) Obesity (BMI 30.0-34.9): Code(s): E66.9 - Obesity, unspecified Category: Medical (2) Oligomenorrhea: Comment: Regular cycles have returned since removal of Nexplanon 08/28/2023 but they are shorter than they used to be patient concerned. Code(s): N91.5 - Oligomenorrhea, unspecified Category: Medical (3) Hirsutism: Code(s): L68.0 - Hirsutism Category: Medical (4) Family history of diabetes mellitus (DM): Comment: mother prediabetes Code(s): Z83.3 - Family history of diabetes mellitus Category: Medical (5) control counseling: Code(s): Z30.09 - Encounter for other general counseling and advice on contraception Category: Medical Plan Reviewed the syndrome PCOS and that it is combination factors that leads to the diagnosis but it would be fine to have some lab work checking for testosterone as well as some other hormonal levels. I did review labs that she had had in the system from last year that were all within normal limits with borderline elevated cholesterol. Reviewed normal cycles in detail and that they do not follow the printed calendar that we use but rather follow the body's own cycles and the way to count the length of cycles is from day 1 of 1 period to day 1 of the next and then to correlate when she believes she is ovulating and she is using symptoms as well as LH levels and therefore she can see which are safe days to have unprotected sex and which would not be. Additionally I will order an ultrasound as well as the labs and we will have a visit afterwards to review all but it sounds like her periods are more normal regular then she suspects and levels maybe fine but we shall see she will be reassured if there is no proof of PCOS but she would like to know if there was that she could be more proactive. Orders: Orders Hemoglobin A1c Today E66.9 - Obesity, unspecified, L68.0 - Hirsutism, N91.5 - Oligomenorrhea, unspecified, Z83.3 - Family history of diabetes mellitus DHEA Sulfate Today E66.9 - Obesity, unspecified, L68.0 - Hirsutism, N91.5 - Oligomenorrhea, unspecified, Z83.3 - Family history of diabetes mellitus US pelvic and transvaginal Today E66.9 - Obesity, unspecified, L68.0 - Hirsutism, N91.5 - Oligomenorrhea, unspecified, Z30.09 - Encounter for other general counseling and advice on contraception, Z83.3 - Family history of diabetes mellitus Sex Hormone Binding Globulin Today E66.9 - Obesity, unspecified, L68.0 - Hirsutism, N91.5 - Oligomenorrhea, unspecified, Z83.3 - Family history of diabetes mellitus Coding Level of Care Code Tele Est Pt Level 3 (23500) Diagnoses Obesity (BMI 30.0-34.9) E66.9 Oligomenorrhea N91.5 Hirsutism L68.0 Family history of diabetes mellitus (DM) Z83.3 control counseling Z30.09
== END 2024-01-30 14:57 | disposition home or self-care (01) ==
LOC: HO.HWSM 14:02
PROVIDERS: PCP Nurse Practitioner Family; Visit Provider Advanced Practice Midwife
DX: E66.9 Obesity, unspecified (principal); N91.5 Oligomenorrhea, unspecified; L68.0 Hirsutism; Z83.3 Family history of diabetes mellitus; Z30.09 Encounter for other general counseling and advice on contraception
CPT/HCPCS: 99213

== ENCOUNTER → 2024-01-30 14:02 | Outpatient (BNVA) | payer OTHER, SELFPAY | PROVIDERS: PCP Nurse Practitioner Family; Visit Provider Advanced Practice Midwife ==

== ENCOUNTER 2024-02-11 11:34 | Outpatient (REF) | payer OTHER, SELFPAY ==
--- NOTE | ~2024-02-11 | US_ITS ---
EXAMINATION: US PELVIS CLINICAL INFORMATION: Oligomenorrhea, last menstrual period 01/28/2024. COMPARISON: 10 None available. TECHNIQUE: Ultrasound of the pelvis is performed using both transabdominal and transvaginal transducers along with Doppler. Transvaginal imaging is performed due to inadequate visualization transabdominally. FINDINGS: The uterus is anteverted and measures 8.0 x 3.1 x 4.4 cm. No significant free fluid. Trace amount of fluid within the endometrial cavity. Double wall endometrial thickness is 8 mm. Left ovary measures 2.4 x 1.8 x 1.9 cm, volume 4.3 mL. Right ovary measures 3.2 x 1.5 x 1.8 cm. Bilateral ovaries are grossly unremarkable, although visualization is limited due to bowel gas. US/US pelvic and transvaginal IMPRESSION: 1. Trace amount of fluid within the endometrial cavity. Double wall endometrial thickness is 8 mm. 2. Bilateral ovaries are grossly unremarkable, although visualization limited due to bowel gas. Electronically signed by: Leigha Phelan MD 02/12/2024 04:51 PM EDT
== END 2024-02-11 11:35 | disposition home or self-care (01) ==
LOC: HO.US 11:34
PROVIDERS: PCP Nurse Practitioner Family; Visit Provider Advanced Practice Midwife
DX: N91.5 Oligomenorrhea, unspecified (principal); L68.0 Hirsutism; Z83.3 Family history of diabetes mellitus; E66.9 Obesity, unspecified
CPT/HCPCS: 76830; 76856

== ENCOUNTER 2025-03-19 12:54 | Outpatient (AMB) | payer OTHER, SELFPAY ==
--- NOTE | 2025-03-19 12:59 | MHC.PC.OV ---
Vital Signs 03/19/25 13:11 Height 5 ft 5.5 in Weight 223 lb BMI 36.5 BP 115/54 L Blood Pressure Location Rt brachial Position Sitting Respiration 16 Pulse 77 Pulse Source Pulse Oximeter Temp 97.9 F Temp Source Oral Pulse Oximetry (%) 98 Oxygen Delivery Method Room Air Intake Visit Reasons: CPE Intake Note: patient here for CPE Private Client Advisor Required: No Is last menstrual period known: No Post menopausal: No Patient : Yes (7months ) Allergies No Known Allergies Allergy (Verified 03/19/25 13:15) Medication List - Last Reconciled 03/19/25 by Stanislaw Jessica CNP choline 250 mg PO DAILY ferrous gluconate (Ferate) 240 mg PO DAILY mv-mn [id number] 180 mcg-35 mg- 25 mg-5 mg ( Gummies (zinc chelate)) tabs PO Tobacco use date assessed: 03/19/25 Dental Screening Dental Screen Date: 03/19/25 Did you have a dental visit in the last 12 months?: No Did you have a dental problem in the last 6 months where you did not have access to dental care?: No Was dental information given to patient?: No HPI HPI Comments History of Present Illness Details 24-year-old female presents for an extended physical exam. She is on vitamins and iron supplement. She is 7 months and going well. She mentioned having a velamentous cord insertion, but reported that the growth of the fetus has been monitored and has been progressing well. She reports controlled mood. Acute issue(s) - None Past Medical History - Anxiety, depression, ADHD Social History - Nonsmoker. Does not vape. Does not drink alcohol. Denies recreational drug use - Has been making healthy dietary choices. Exercises routinely. Generally sleep well - She notes that she is sexually, in a monogamous relationship, and has no concern for STDs Health maintenance - Last eye exam was several years ago. Referred to Ophthalmology for routine eye exam - Last dental visit was 3 ago; encouraged to schedule an appointment with his dentist for routine dental care - Last Tdap was in 11/11/2012; refused Tdap at this time; plans to get vaccine with card scraper - Has not been vaccinated for the flu this season; declines vaccination - Last pap smear test was in 06/2022 with [facility] [employer] Specialists - [place] [facility] Medical History Asthma Depression Anxiety Surgical History [place] teeth extracted Family History Maternal Grandmother Ovarian cancer Paternal Grandmother Cardiovascular disease Maternal Grandfather High blood pressure Diabetes Social History Housing: House Alcohol intake: current Alcohol intake frequency: a few times a month Patient Tobacco Use Status: Never used Tobacco e-Cigarette/Vaping Use: Never Used Second Hand Smoke Exposure: No Substance Use Type: Marijuana service: No Current occupational status: employed Current occupation: Teacher at [employer] Cognitive needs: No Hearing needs: No Vision needs: No Female Reproductive History Menstrual Age of Menarche: 13 Questionnaire PHQ-9 Over the last 2 weeks, how often have you been bothered by any of the following problems? 1. Little interest or pleasure in doing things: not at all 2. Feeling down, depressed, or hopeless: not at all 3. Trouble falling or staying asleep, or sleeping too much: several days 4. Feeling tired or having little energy: several days 5. Poor appetite or overeating: not at all 6. Feeling bad about yourself - or that you are a failure or have let yourself or your family down: not at all 7. Trouble concentrating on things, such as reading the newspaper or watching television: not at all 8. Moving or speaking so slowly that other people could have noticed. Or the opposite - being so fidgety or restless that you have been moving around a lot more than usual: not at all 9. Thoughts that you would be better off or of hurting yourself in some way: not at all Total score: 2 Depression Screening Interpretation: Negative Depression Screening Done: Yes 00591 - PHQ-9 Billing: Yes Source: Developed by Drs. Kumar Flores, Chantal Banks, Nicanor Grubbs and colleagues, with an educational abhijit from [employer]. Thrive Questionnaire Date Thrive assessed: 03/18/25 I am a: Patient What is your living situation today?: I have a steady place to live Within the past 12 months, did the food you bought not last and you didn't have the money to get more?: I choose not to answer this question Within the past 12 months, did you worry whether your food would run out before you got money to buy more?: Sometimes True Do you have trouble paying for medicines?: I choose not to answer this question Do you have trouble getting transportation to medical appointments?: No Do you have trouble paying your heating and electricity bill?: No Do you have trouble taking care of your child, family member or friend?: No Do you have trouble with day-to-day activities such as bathing, preparing meals, shopping, managing finances, etc.?: No Are you currently unemployed and looking for a job?: I choose not to answer this question Are you interested in more education?: No Please select the resources that you would like help with: None Currently or been in a relationship where the following occur: No concerns reported THRIVE Score: 1 AUDIT C Alcohol Use Questionnaire (AUDIT-C) 1. How often do you have a drink containing alcohol?: Never 3. How often do you have six or more drinks on one occasion?: Never Total Score: 0 Score Reviewed/Action Taken: Yes JASWINDER-7 AMB Questionnaire JASWINDER-7 Date JASWINDER - 7 assessed: 03/19/25 Feeling nervous, anxious, or on edge: 1 = Several days Not being able to stop or control worryin = Several days Worrying too much about different things: 0 = Not at all Trouble relaxin = Several days Being so restless that it is hard to sit still: 0 = Not at all Becoming easily annoyed or irritable: 0 = Not at all Feeling afraid as if something awful might happen: 1 = Several days Total JASWINDER-7 score (0-4 normal; 5-9 mild; 10-14 moderate; 15-21 severe): 4 Source: Developed by Drs. Kumar Flores, Chantal Banks, Nicanor Grubbs and colleagues, with an educational abhijit from [employer]. JASWINDER-7 Assessment Billing JASWINDER-7 Assessment Tool: JASWINDER-7 Assessment 32067 Review of Systems Const Details: Denies chills, Denies fatigue, Denies fever(s), Denies headache(s) and Denies weakness HEENT Denies change in vision, Denies dizziness, Denies headache(s), Denies hearing loss, Denies nasal congestion, Denies sinus pain, Denies sinus pressure and Denies sore throat Card Denies chest pain, Denies lightheadedness, Denies dyspnea and Denies other (palpitations) Resp Denies cough, Denies dyspnea and Denies wheezing GI Denies abdominal pain, Denies melena, Denies hematochezia, Denies change in bowel habits, Denies dyspepsia and Denies nausea Denies hematuria and Denies dysuria Musc Denies abnormal gait, Denies myalgias, Denies arthralgias, Denies numbness and Denies tingling Skin/Breast Denies rash, Denies unusual bruising and Denies wounds Neuro Denies abnormal gait, Denies dizziness, Denies headache(s), Denies memory loss, Denies numbness, Denies Sensory deficit (Neuro), Denies tingling and Denies weakness Psych Denies anxiety, Denies depression and Denies memory loss Endo Denies cold intolerance, Denies fatigue, Denies heat intolerance, Denies polydipsia and Denies polyuria Jarret/Lymph Denies easy bleeding and Denies easy bruising Aller/Immun Denies wheezing Physical exam (Primary Care) Vital Signs: Last Vital Signs Temp 97.9 F 03/19/25 13:11 Pulse 77 03/19/25 13:11 Resp 16 03/19/25 13:11 BP 115/54 L 03/19/25 13:11 Pulse Ox 98 03/19/25 13:11 Oxygen Delivery Method Room Air 03/19/25 13:11 BMI result Body Mass Index 36.5 Tobacco/Smoking Status: Tobacco use Status Tobacco use date assessed 03/19/25 03/19/25 13:13 Patient Tobacco Use Status Never used Tobacco 03/19/25 13:00 e-Cigarette/Vaping Use Never Used 03/19/25 13:00 PHQ-9: PHQ-9 Score PHQ-9: Total score 2 03/19/25 13:00 Depression Screening Interpretation: Negative Thrive Assessment: Date of Thrive Assessment Date Thrive assessed 03/18/25 03/19/25 13:00 Currently or been in a relationship where the following occur: No concerns reported Const Other: General: no acute distress, well developed, alert and awake Nutritional Appearance: well nourished Orientation/consciousness: patient oriented x3 [facility] Head: Yes normocephalic and Yes atraumatic Ears: hearing grossly normal bilaterally and TM's normal bilaterally General nose exam: Normal external nose present and Normal nares present Mouth: Normal oral and palatal mucosa present and moist mucous membranes Teeth and gingiva: dentition normal Throat: Yes oropharynx normal Eyes Pupils: Equal, round and reactive pupils present and Pupil accommodation reflex normal EOM: EOMs intact bilaterally Neck Neck: Yes normal visual inspection, Yes no lymphadenopathy and Yes trachea midline Thyroid: Thyroid normal Carotids: no bruits Lymphatic: no lymphadenopathy noted Chest Chest palpation & inspection: normal inspection of the chest Resp Effort & Inspection: normal respiratory effort Auscultation: clear to auscultation bilaterally Cardio Rate: regular rate Rhythm: regular rhythm Heart sounds: S1 normal heart sound present, S2 normal heart sound present, no gallops, no murmurs and no rubs Bruits: no abdominal aortic bruits and no carotid bruits GI Palpation (GI): No Abdominal aortic bruit present, Soft to palpation, nontender, No hepatosplenomegaly present and No Rebound tenderness present Auscultation: normal bowel sounds General: Yes no CVA tenderness Back/Spine/Pelvis Back: no CVA tenderness Cervical Spine: cervical ROM normal and No Cervical spine tenderness Thoracic/Lumbar Spine: thoraco-lumbar ROM normal, No pain with thoraco-lumbar ROM, No thoracic spinal tenderness and No lumbar spinal tenderness Skin General: warm and dry. Normal skin color. Normal skin turgor Lesions: no lesions Rashes: no rashes Trauma: no lacerations or abrasions Wounds: no wounds Nails: normal Neuro General: patient oriented x3, gait normal and CN's II-XI intact bilaterally Cranial nerves: Yes Equal, round and reactive pupils present Cognition (Neuro): normal cognition Gait exam (Neuro): Normal gait present Motor exam (neuro): 5/5 motor strength present throughout Sensory Exam: No Sensory deficit (Neuro) Deep tendon reflexes (DTR's): Right patellar reflex intensity grade: 2+ and Left patellar reflex intensity grade: 2+ Extrem General: Yes normal to inspection, No edema and No calf tenderness Psych Appearance: grossly normal Affect: normal affect Attitude: cooperative Thought process: Normal thought process present Coding Level of Care Code Est Pt Level 3 (99240) Est Pt Prev Care 18-39y(66733) Diagnoses Normal physical examination, routine Z00.00 Z34.90 Eye exam, routine Z01.00 Laboratory tests ordered as part of a complete physical exam (CPE) Z00.00 Additional Codes JASWINDER-7 Assessment Billing - JASWINDER-7 Assessment Tool: JASWINDER-7 Assessment 55874 ([id number]) PHQ-9 - 69486 - PHQ-9 Billing: Yes ([id number]) Assessment & Plan Assessment & Plan (1) Normal physical examination, routine: Code(s): Z00.00 - Encounter for general adult medical examination without abnormal findings Category: Medical Plan: No significant functional limitation noted. Continue current treatment regimen. Healthy diet and routine exercise encouraged. Perform lab work as planned and follow-up a for telehealth visit for labs review in 2-4 weeks. Return sooner with symptoms or concerns. Verbalized understanding and agreed with the plan. (2) : Code(s): Z34.90 - Encounter for supervision of normal , unspecified, unspecified trimester Category: Medical Plan: She is 7 months and going well. She mentioned having a velamentous cord insertion, but reported that the growth of the fetus has been monitored and has been progressing well. Continue current treatment regimen and follow-up with painter [employer] as planned. Verbalized understanding and agreed with the plan. (3) Eye exam, routine: Code(s): Z01.00 - Encounter for examination of eyes and vision without abnormal findings Category: Medical Plan: Last eye exam was several years ago. Referred to Ophthalmology for routine eye exam. (4) Laboratory tests ordered as part of a complete physical exam (CPE): Code(s): Z00.00 - Encounter for general adult medical examination without abnormal findings Category: Medical Plan: Fasting labs ordered as part of a complete physical exam. Advised to fast for at least 10 hours before getting labs drawn. May drink water Verbalized understanding and agreed with treatment plan. Orders: Orders Comprehensive [place]. Panel Fast Today Z00.00 - Encounter for general adult medical examination without abnormal findings Lipid Panel Today Z00.00 - Encounter for general adult medical examination without abnormal findings Microalbumin, Random (w Creat) Today Z00.00 - Encounter for general adult medical examination without abnormal findings TSH reflex Free T4 Today Z00.00 - Encounter for general adult medical examination without abnormal findings Vitamin D 25-OH Total Today Z00.00 - Encounter for general adult medical examination without abnormal findings Complete Blood Count Auto Diff Today Z00.00 - Encounter for general adult medical examination without abnormal findings UA CC w/rflx Micro + Cult Today Z00.00 - Encounter for general adult medical examination without abnormal findings Referrals Ophthalmology Referral Z01.00 - Encounter for examination of eyes and vision without abnormal findings
[2025-03-19 13:11] VITALS: BP 115/54; PULSE 77; RESP 16; TEMP 36.6; O2SAT 98; BMI 36.5
== END 2025-03-19 13:35 | disposition home or self-care (01) ==
LOC: HO.HMCFM 12:55
PROVIDERS: PCP Nurse Practitioner Family; Visit Provider Nurse Practitioner Family
DX: Z00.00 Encounter for general adult medical examination without abnormal findings (principal); Z34.90 Encounter for supervision of normal pregnancy, unspecified, unspecified trimester; Z01.00 Encounter for examination of eyes and vision without abnormal findings

== ENCOUNTER → 2025-03-19 12:54 | Outpatient (BNVA) | payer OTHER, SELFPAY | PROVIDERS: PCP Nurse Practitioner Family; Visit Provider Nurse Practitioner Family | DX: Z34.92 Encounter for supervision of normal pregnancy, unspecified, second trimester (principal) | CPT/HCPCS: 96127 ==